=== PATIENT | male | born 1990 | race Caucasian/White ===

== ENCOUNTER 2021-08-28 04:10 | Emergency (ER) | payer BC, SELFPAY ==
[2021-08-28 04:11] VITALS: BP 135/82; PULSE 116; RESP 24; TEMP 38.2; O2SAT 93; BMI 39.5
[2021-08-28 04:14] VITALS: BP 135/82; PULSE 116; RESP 24; TEMP 38.2; O2SAT 93
--- NOTE | 2021-08-28 04:24 | EKG12_ITS ---
Test Reason : DYSRHYTHMIA Blood Pressure : / mmHG Vent. Rate : 109 BPM Atrial Rate : 109 BPM P-R Int : 130 ms QRS Dur : 088 ms QT Int : 416 ms P-R-T Axes : 042 056 036 degrees QTc Int : 560 ms Sinus tachycardia Prolonged QT Abnormal ECG Confirmed by ZAC HARMON, DAJA ([id number]), editorial assistant JESUS PENALOZA ([id number]) on 09/03/2021 6:29:16 AM Referred By: IMELDA Confirmed By:DAJA FRAKN MD
--- NOTE | 2021-08-28 04:43 | RAD_ITS ---
EXAM: XR CHEST, 1 VIEW CLINICAL INDICATION: cough cough TECHNIQUE: Frontal view of the chest. This report was created using [employer] report generation technology. COMPARISON: None. FINDINGS: LUNGS AND PLEURAL SPACES: Unremarkable. No consolidation or edema. No pneumothorax. No effusion. HEART: Unremarkable. Cardiac silhouette not enlarged. MEDIASTINUM: Central airways and mediastinal contour are unremarkable. BONES/JOINTS: Unremarkable. SOFT TISSUES: Unremarkable. RAD/Chest 1 View (Portable) IMPRESSION: No radiographic evidence of acute cardiopulmonary disease. Electronically Signed: Bin Cardona MD at 5:46 EDT , Service support ,
[2021-08-28 04:51] LABS: Absolute Lymphocyte Count 1.15 X10^3/uL (0.83-4.51); Absolute Neutrophil Count 4.4 X10^3/uL (2.0-7.7); Basophil# 0.02 X10^3/uL; Basophil% 0.3 % (0-1); Eosinophil# 0.15 X10^3/uL; Eosinophils% 2.4 % (0-5); Hematocrit 50.7 % (40-54); Hemoglobin 17.4 g/dL (13.0-16.5); Lymphocyte # 1.15 X10^3/ul (0.83-4.51); Lymphocyte % 18.7 % (19-41); Mean Corp Hgb Conc 34.3 g/dL (32-36); Mean Corpuscular Hgb 29.2 pg (27.0-32.0); Mean Corpuscular Volume 85.1 fL (80-94); Mean Platelet Vol. 10.4 fl (6.2-12.0); Monocyte# 0.37 X10^3/uL; NRBC Flagged by Analyzer 0 % (0-5); Neutrophil # 4.41 X10^3/uL (2.7-7.7); Neutrophil % 71.8 % (47-70); Platelet Count 182 K/mm3 (150-450); RBC Distribution Width CV 11.9 % (11.6-14.6); RBC Distribution Width SD 36.7 fl (35.1-43.9); Red Blood Count 5.96 M/mm3 (4.6-6.2); White Blood Count 6.2 K/mm3 (4.4-11.0)
[2021-08-28] MEDS: 0.9% Normal Saline 1,000 ML 999 ML IV (04:52)
[2021-08-28] MEDS: Acetaminophen 500 MG Tablet 1000 MG PO (04:53)
[2021-08-28] MEDS: dexAMETHasone 10 MG/ML Vial IV (04:53)
--- NOTE | 2021-08-28 05:00 | EDS_ITS ---
HPI History of Present Illness Chief Complaint: Shortness of Breath Narrative Narrative: Patient is a 30-year-old male who states that he was diagnosed with COVID five days ago. He reports he is had a fever since that time. He also reports he has had generalized fatigue with myalgias cough and shortness of breath. He reports that he feels a shortness of breath has steadily worsened and has concern that he may need oxygen secondary to this comes in for evaluation [facility] Medical History no medical history Home Medications albuterol sulfate [Ventolin HFA] 1 - 2 puff INHALATION Q4H PRN PRN #1 device 08/28/21 [Rx Last Taken Unknown] dexamethasone [Decadron] 6 mg PO DAILY #10 tab 08/28/21 [Rx Last Taken Unknown] promethazine-codeine 5 ml PO Q6H PRN 7 Days #140 ml 08/28/21 [Rx Last Taken Unknown] Allergy/AdvReac Type Severity Reaction Status Date / Time No Known Allergies Allergy Verified 12/24/16 19:21 Surgical History no surgical history Social History Smoking Status: Current some day smoker tobacco type: cigarettes ROS ROS ED Constitutional Constitutional ED: Reports chills and fever(s) ENT ENT ED: Reports rhinorrhea and sore throat Cardiovascular Cardiovascular: Denies chest pain Respiratory/Chest Respiratory/Chest: Reports cough and dyspnea Gastrointestinal Gastrointestinal: Denies abdominal pain, diarrhea, nausea or vomiting Genitourinary Genitourinary ED: Denies dysuria Musculoskeletal Musculoskeletal: Reports myalgias Integumentary Denies rash Neurologic Neurologic: Denies headache(s) Hematologic/Lymphatic Hematologic/Lymphatic: Denies easy bleeding or easy bruising EXAM Physical Exam Const Vital Signs: 08/28/21 04:11 08/28/21 04:14 Temperature 100.7 F H 100.7 F H Temperature Source Oral Oral Pulse Rate 116 H 116 H Respiratory Rate 24 H 24 H Respiratory Effort Short of Breath Respiratory Pattern Tachypnea Blood Pressure 135/82 H 135/82 H Blood Pressure Mean 99 99 Pulse Ox 93 93 Oxygen Delivery Method Room Air Room Air Positive well nourished and well developed General Appearance ED: well developed HEENT Reports moist mucous membranes HEENT Narrative: No tongue or lip swelling no oral lesions no airway edema or compromise Eyes PERRL and EOMs intact bilaterally Neck supple and no JVD Neck Narrative: Positive anterior cervical lymphadenopathy Chest Wall palpation of chest normal Resp Resp Narrative: Breath sounds are diminished throughout with faint expiratory wheezes diffusely. Patient does have mild worker breathing with tachypnea and accessory muscle use Cardio regular rhythm Rate: other Other Details: Tachycardic rate with regular rhythm GI normal to inspection, nondistended, normoactive bowel sounds, non-tender and non-distended Auscultation: normoactive bowel sounds Palpation: soft Extremity normal to inspection Extremity Narrative: No asymmetric edema no pitting edema negative home and sign bilaterally Neuro oriented x3 and CN's II-XII intact bilaterally Sensorium / Orientation: alert Psych mental status grossly normal Skin no rashes or lesions noted MDM MDM MDM Narrative Medical decision making narrative: Patient presented to the ER with a fever and tachycardia. His room air pulse ox was between 93 and 94% however. What is known COVID diagnosis of basic workup was obtained. Labs revealed no clinically significant findings or signs of heart. Chest x-ray revealed no obvious infiltrate. The patient was ambulated in the room and had no desaturation holding steady at approximate 93 or 94% with motion. Therefore this time he does not qualify for oxygen. However based on his elevated BMI I do feel he would be appropriate for monoclonal antibody. this was discussed with the patient and he is agreeable to this. At this time however as he is not requiring supplemental oxygen he does not have signs of cardiac damage there is no need to keep him in the hospital and he is safe for discharge Lab Data Attestation: I reviewed the patient's lab results. Labs: Laboratory Results - last 24 hr 08/28/21 08/28/21 04:40 04:40 WBC 6.2 RBC 5.96 Hgb 17.4 H Hct 50.7 MCV 85.1 MCH 29.2 MCHC 34.3 RDW Std Deviation 36.7 RDW Coeff of Ryanne 11.9 Plt Count 182 MPV 10.4 Immature Gran % (Auto) 0.800 Neut % (Auto) 71.8 H Lymph % (Auto) 18.7 L [place] % (Auto) 6.0 Eos % (Auto) 2.4 Baso % (Auto) 0.3 Absolute Neuts (auto) 4.4 Absolute Lymphs (auto) 1.15 Nucleated RBC % 0 Sodium 136 Potassium 3.9 Chloride 101 Carbon Dioxide 29.0 Anion Gap 6 BUN 11 Creatinine 1.33 H Estim Creat Clear Calc 109.27 Est GFR (MDRD) Af Amer 80 Est GFR (MDRD) Non-Af 66 BUN/Creatinine Ratio 8.3 L Glucose 121 H Calcium 9.1 Magnesium 2.1 Troponin I High Sens 9 Radiography Diagnostic Testing: Clinical Impression(s) from Imaging Studies Chest X-Ray 08/28/21 04:43 IMPRESSION: No radiographic evidence of acute cardiopulmonary disease. Electronically Signed: Bin Cardona MD at 5:46 EDT , Service support , Discharge Plan Triage Chief Complaint: Shortness of Breath ED Provider: Aryan Lopez Dx/Rx/DC Orders Clinical Impression: COVID-19 Instructions: Coronavirus Disease 2019 (COVID-19): Caring for Yourself or Others Prescriptions: New albuterol sulfate [Ventolin HFA] 90 mcg/actuation HFA aerosol inhaler 1 - 2 puff inhalation Q4H PRN PRN (Reason: Wheezing) Qty: 1 RF: 0 dexamethasone [Decadron] 6 mg tablet 6 mg PO DAILY Qty: 10 RF: 0 promethazine-codeine 6.25-10 mg/5 mL syrup 5 ml PO Q6H PRN (Reason: cough) 7 Days Qty: 140 RF: 0 Other Ambulatory Orders: COVID Outpatient Monoclonal Antibody Referral (Routine) Timeframe: 1 Day Facility: [facility] - Location: [facility] [place] Ordered By: Dr. Aryan Lopez Primary Care Provider: Care Physician,No Primary Referrals: Wilbur Valdivia DO [STAFF PHYSICIAN] - 1 Week if not improving Care Physician,No Primary [Primary Care Provider] - Disposition Disposition: Home, Self Care
[2021-08-28 05:12] LABS: Anion Gap 6 (5-15); BUN 11 mg/dL (7-18); BUN/Creat Ratio 8.3 RATIO (10-20); Calcium,Total 9.1 mg/dL (8.5-10.1); Chloride 101 mmol/L (98-107); Creatinine, Serum 1.33 mg/dL (0.70-1.30); EST Glomerular Filtration Rate 66 mL/min (>60); Est Glom Filt Rate - Afr Amer 80 mL/min (>60); Estimated Creatinine Clearance 109.27 ml/min; Glucose 121 mg/dL (74-106); Magnesium 2.1 mg/dL (1.6-2.6); Potassium 3.9 mmol/L (3.5-5.1); Sodium Level 136 mmol/L (136-145); Troponin-I HS 9 pg/mL (3.0-78.0)
[2021-08-28 06:49] VITALS: PULSE 88; RESP 20; O2SAT 96
--- NOTE | 2021-08-28 06:50 | ED.RN ---
pt given a home o2 sensor to monitor pulse ox
== END 2021-08-28 06:50 | disposition home or self-care (01) ==
PROVIDERS: Emergency Provider Emergency Medicine
DX: U07.1 COVID-19 (principal); F17.210 Nicotine dependence, cigarettes, uncomplicated
CPT/HCPCS: 71045; 80048; 83735; 84484; 85025; 87426; 93005; 96361; 96374; 99283; J7030; A4216

== ENCOUNTER 2021-08-28 12:10 | Outpatient (CLI) | payer BC, SELFPAY ==
[2021-08-28 12:18] VITALS: BP 153/90; PULSE 109; RESP 16; TEMP 37.5; O2SAT 97; BMI 40.9
[2021-08-28] MEDS: 0.9% Saline Lock 10 ML Syringe IV (12:28)
[2021-08-28 13:14] VITALS: BP 145/78; PULSE 98; RESP 16; TEMP 38.8; O2SAT 97
[2021-08-28] MEDS: Acetaminophen 325 MG Tablet 650 MG PO (13:36)
[2021-08-28 14:22] VITALS: BP 149/81; PULSE 100; RESP 16; TEMP 37.9; O2SAT 98
== END 2021-08-28 14:24 | disposition home or self-care (01) ==
LOC: MS3OUT 12:10 → MS3 12:11
PROVIDERS: Referring Provider Nurse Practitioner Adult Health; Visit Provider Nurse Practitioner Adult Health
DX: Z23 Encounter for immunization (principal); U07.1 COVID-19
CPT/HCPCS: J7050; M0243; A4216; Q0240